=== PATIENT | female | born 1990 ===

== ENCOUNTER 2023-11-01 11:39 | Outpatient (CLI) | payer OTHER, SELFPAY ==
--- NOTE | ~2023-11-01 | US_ITS ---
EXAMINATION: US thyroid DATE: 11/01/2023 12:03 INDICATION: Thyroid disease with abnormal labs TECHNIQUE: Multiple ultrasound images of the thyroid were obtained. COMPARISON: None. FINDINGS: The right thyroid lobe measures 4.4 x 1.5 x 1.1 cm. The left thyroid lobe measures 4.3 x 1.2 x 1.4 c m. There is coarsened echotexture throughout the thyroid. There is a subtle 11 mm wider than tall ma ss in the left thyroid lobe which appears heterogeneous with both hypoechoic and hyperechoic componen ts and with smooth ill-defined margins and without echogenic foci (TI-RADS 4, moderately suspicious , FNA if >=1.5 cm, annual followup is >=1 cm). There is a 4 mm solid hyperechoic nodule with ill-defin ed margins and without echogenic foci in the right thyroid lobe (TI-RADS 3, mildly suspicious , FNA i f >=2.5 cm, annual followup is >=1.5 cm). IMPRESSION: 1. Multiple thyroid nodules, the largest a 1.1 TI RADS 4 nodule in the left thyroid lobe for which an nual ultrasound follow-up would be recommended. Reviewed, dictated and finalized at location A. IMPRESSION: 1. Multiple thyroid nodules, the largest a 1.1 TI RADS 4 nodule in the left thy roid lobe for which annual ultrasound follow-up would be recommended.
== END 2023-11-01 11:40 ==
LOC: MICIMG 11:41
PROVIDERS: PCP Internal Medicine; Visit Provider Internal Medicine
DX: E07.9 Disorder of thyroid, unspecified (principal); E03.9 Hypothyroidism, unspecified; E04.2 Nontoxic multinodular goiter
CPT/HCPCS: 76536